=== PATIENT | female | born 1985 | race Caucasian/White ===

== ENCOUNTER 2016-09-09 22:30 | Emergency (ER) | payer OTHER ==
[2016-09-10] MEDS ORDERED: MORPHINE SULFATE 10 MG/ML INJ IV ONE ×2 (02:14→05:05)
[2016-09-10] MEDS ORDERED: ONDANSETRON HCL INJ/PF 4 MG/2 ML SDV IV ONE (02:14)
--- NOTE | 2016-09-10 02:16 | ER Document Report ---
ED GI/ - General Chief Complaint: Pelvic Pain Stated Complaint: PELVIC PAIN Time seen by provider: 02:10 Notes: Patient is a 31-year-old female that comes emergency department with chief complaint of pain in her lower abdomen which is worsening, painful urination, fever since yesterday. Patient is 1.5 weeks status post hysterectomy in [facility] (uterus, fallopian tubes, cervix removed, left ovaries). Past medical history of lupus nephritis, resulting hypertension, and diaphoretic antiphospholipid syndrome, was previously on a blood thinner before surgery. She is also taking Plaquenil. She states because of the pain she had elevation in her blood pressure, she states when she gets this she gets a headache, she states she currently has a headache. TRAVEL OUTSIDE OF THE [place] IN LAST 30 DAYS: No - Related Data Allergies/Adverse Reactions: chlorpromazine HCl [From Thorazine] Allergy (Mild, Verified 09/05/13 13:42) metoclopramide HCl [From Reglan] Allergy (Mild, Verified 09/05/13 13:42) prochlorperazine edisylate [From Compazine] Allergy (Mild, Verified 09/05/13 13: 42) prochlorperazine maleate [From Compazine] Allergy (Mild, Verified 09/05/13 13:42 ) Past Medical History - General Information source: Patient - Social History Smoking Status: Never Smoker Drug Abuse: None Lives with: Spouse/Significant other Family History: None Renal/ Medical History: Reports: Other - Lupus nephritis Past Surgical History: Reports: Hx Hysterectomy, Hx Orthopedic Surgery - left NAFISA - Immunizations Hx Diphtheria, Pertussis, Tetanus Vaccination: No Review of Systems - Review of Systems Constitutional: No symptoms reported EENT: No symptoms reported Cardiovascular: No symptoms reported Respiratory: No symptoms reported Gastrointestinal: See HPI Genitourinary: See HPI Female Genitourinary: See HPI Musculoskeletal: No symptoms reported Skin: No symptoms reported Hematologic/Lymphatic: No symptoms reported Neurological/Psychological: No symptoms reported Physical Exam - Vital signs Vitals: Temp Pulse Resp BP Pulse Ox 98.1 F 83 18 171/115 H 100 09/10/16 00:12 09/10/16 00:12 09/10/16 00:12 09/10/16 00:12 09/10/16 00:12 Interpretation: Normal - General General appearance: Anxious In distress: Mild - Patient lying on her side, appears to be in some pain - HEENT Head: Normocephalic, Atraumatic Eyes: Normal Conjunctiva: Normal Extraocular movements intact: Yes Eyelashes: Normal Pupils: PERRL Nasal: Normal Mouth/Lips: Normal Mucous membranes: Normal Pharynx: Normal Neck: Normal - Respiratory Respiratory status: No respiratory distress Chest status: Nontender Breath sounds: Normal. No: Decreased air movement, Wheezing Chest palpation: Normal - Cardiovascular Rhythm: Regular. No: Tachycardia Heart sounds: Normal auscultation, S1 appreciated, S2 appreciated Murmur: No - Abdominal Inspection: Healed incision - Healed incisions over the abdomen consistent with laparoscopic procedure of the pelvis Distension: No distension Bowel sounds: Normal Tenderness: Tender - There is mild tenderness in the lower abdomen generally. - Genitourinary External exam: Normal Speculum exam: Other - Cervix absent, vaginal cuff present, no bleeding, discharge, or other abnormality noted; CORE SHAPER TOP Dotty present during examination Vaginal bleeding: None - Back Back: Normal, Nontender - Extremities General upper extremity: Normal inspection, Nontender, Normal color, Normal ROM , Normal temperature General lower extremity: Normal inspection, Nontender, Normal color, Normal ROM , Normal temperature, Normal weight bearing. No: Ruddy's sign - Neurological Neuro grossly intact: Yes Cognition: Normal Orientation: AAOx4 Robert Coma Scale Eye Opening: Spontaneous [place] Coma Scale Verbal: Oriented [place] Coma Scale Motor: Obeys Commands Robert Coma Scale Total: 15 Speech: Normal Motor strength normal: LUE, RUE, LLE, RLE Sensory: Normal - Psychological Associated symptoms: Normal affect, Normal mood - Skin Skin Temperature: Warm Skin Moisture: Dry Skin Color: Normal Course - Re-evaluation Re-evalutation: CBC shows anemia, most likely secondary to her hysterectomy. No leukocytosis, fever, tachycardia. Patient is hypertensive. Patient on multiple hypertensive medications. Chemistry unremarkable, urinalysis is completely unremarkable despite patient's reported dysuria. Pelvic examination is unremarkable. No vaginal bleeding noted. Because of patient's reported pain and postop status, CT was performed, because of lupus nephritis IV bolus normal saline was given after contrast, creatinine was noted to be normal beforehand. No acute emergent findings, patient was provided a copy of her disc to follow- up with her surgeon, discussed return precautions. Patient states understanding and agreement. - Vital Signs Vital signs: Temp Pulse Resp BP Pulse Ox 97.5 F 78 16 143/98 H 97 09/10/16 07:11 09/10/16 07:11 09/10/16 07:11 09/10/16 07:11 09/10/16 07:11 - Laboratory Result Diagrams: 09/10/16 03:30 09/10/16 03:30 Laboratory results interpreted by me: 09/10/16 09/10/16 09/10/16 03:30 03:30 04:50 Hgb 9.5 L Hct 29.8 L MCV 71 L MCH 22.6 L MCHC 31.9 L RDW 18.5 H Potassium 3.5 L Urine Protein 30 H Discharge - Discharge Clinical Impression: Postoperative pain Abdominal pain Qualifiers: Abdominal location: lower abdomen, unspecified Qualified Code(s): R10.30 - Lower abdominal pain, unspecified Condition: Stable Disposition: HOME, SELF-CARE Additional Instructions: No acute abnormalities are noted on your labs, urine, exam, or CAT scan imaging. Take the stool softener as directed for the next 2-3 days, take the [place] if needed for pain, follow-up with your surgeon. Return to emergency department for any concerning or worsening symptoms including fever, abdominal swelling, or any other concerning symptoms. Prescriptions: Docusate Sodium [Colace 100 mg Capsule] 100 mg PO DAILY #30 capsule Hydrocodone/Acetaminophen [[place] 5-325 mg Tablet] 1 - 2 tab PO ASDIR #12 tablet
[2016-09-10 03:52] LABS: ABSOLUTE EOSINOPHILS # (AUTO) 0.4 10^3/uL (0.0-0.6); ABSOLUTE LYMPHOCYTES (AUTO) 1.6 10^3/uL (0.5-4.7); ABSOLUTE MONOCYTES (AUTO) 0.3 10^3/uL (0.1-1.4); ABSOLUTE NEUT (AUTO) 5.7 10^3/uL (1.7-8.2); BASOPHILS % (AUTO) 0.6 % (0-2); EOSINOPHILS % (AUTO) 4.8 % (0-6); HEMATOCRIT 29.8 % (36.0-47.0); HEMOGLOBIN 9.5 g/dL (12.0-15.5); HGB HCT DIFFERENCE -1.3; LYMPHOCYTES % (AUTO) 19.6 % (13-45); MEAN CORPUSCULAR HEMOGLOBIN 22.6 pg (27.0-33.4); MEAN CORPUSCULAR HGB CONC 31.9 g/dL (32.0-36.0); MEAN CORPUSCULAR VOLUME 71 fl (80-97); MONOCYTES % (AUTO) 3.7 % (3-13); RED BLOOD COUNT 4.21 10^6/uL (3.72-5.28); RED CELL DISTRIBUTION WIDTH 18.5 % (11.5-14.0); SEGMENTED NEUTROPHILS % (AUTO) 71.3 % (42-78); WHITE BLOOD COUNT 7.9 10^3/uL (4.0-10.5)
[2016-09-10 04:33] LABS: ALANINE AMINOTRANSFERASE 30 U/L (9-52); ALBUMIN 3.8 g/dL (3.5-5.0); ALKALINE PHOSPHATASE 101 U/L (38-126); ANION GAP 14 (5-19); ASPARTATE AMINO TRANSFERASE 20 U/L (14-36); BILIRUBIN,TOTAL 0.3 mg/dL (0.2-1.3); BLOOD UREA NITROGEN 8 mg/dL (7-20); CALCIUM 9.3 mg/dL (8.4-10.2); CARBON DIOXIDE 25 mmol/L (22-30); CHLORIDE 104 mmol/L (98-107); CREATININE RESULT 0.86 mg/dL (0.52-1.25); GLUCOSE 94 mg/dL (75-110); POTASSIUM 3.5 mmol/L (3.6-5.0); SODIUM 143.1 mmol/L (137-145); TOTAL PROTEIN 6.4 g/dL (6.3-8.2)
[2016-09-10] MEDS ORDERED: DIPHENHYDRAMINE HCL 50 MG/ML VIAL IV ONE (05:05)
[2016-09-10 05:12] LABS: APPEARANCE,URINE CLEAR; BILIRUBIN,URINE NEGATIVE (NEGATIVE); GLUCOSE, URINE NEGATIVE (NEGATIVE); KETONES,URINE NEGATIVE (NEGATIVE); LEUKOCYTE ESTERASE,URINE NEGATIVE (NEGATIVE); NITRITE,URINE NEGATIVE (NEGATIVE); PROTEIN,URINE 30 mg/dL (NEGATIVE); URINE SPECIFIC GRAVITY 1.006; UROBILINOGEN,URINE NEGATIVE mg/dL (<2.0)
[2016-09-10] MEDS ORDERED: NORMAL SALINE 1000 ML 1,000 ML IV ONE (05:27)
[2016-09-10 07:13] VITALS: BP 143/98
== END 2016-09-10 07:11 | disposition home or self-care (01) ==
LOC: ER 22:30
DX: G89.18 Other acute postprocedural pain (principal); R10.30 Lower abdominal pain, unspecified; R10.2 Pelvic and perineal pain; Z90.710 Acquired absence of both cervix and uterus
CPT/HCPCS: 96376; 99284; 96361; 51701; 96374; 96375; 36415; 85025; 80053; 81001; 74177; J1200; J2270; J2405; J7030

== ENCOUNTER 2020-03-13 14:50 | Emergency (ER) | payer OTHER ==
[2020-03-13 15:43] VITALS: BP 158/110
--- NOTE | 2020-03-13 15:56 | ER Document Report ---
ED General - General Chief Complaint: High Blood Pressure Stated Complaint: BP ISSUES/SHORTNES OF BREATH Time Seen by Provider: 03/13/20 15:20 Primary Care Provider: Radha NORIEGA MD [ACTIVE STAFF] - Follow up as needed Mode of Arrival: Ambulatory Information source: Patient Notes: Patient [place] and missed her dialysis session. Pat lori states that she typically dialyzes Friday and missed Friday as well as today due to her car breaking down. Patient states she expects to get her vehicle out of the shop tomorrow. Patient states that she has had mild lower extremity swelling that is worse after standing and mild shortness of breath. Patient states that her blood pressure has been increasing but she has been taking additional blood pressure medications under the direction of her doctor to treat that. Patient states that she dialyzes at [facility] and was attempting to get dialyzed locally although they require a negative COVID test in the state as compared to hers. TRAVEL OUTSIDE OF THE [place] IN LAST 30 DAYS: No - HPI Onset: Yesterday Onset/Duration: Gradual Quality of pain: No pain Pain Level: Denies Associated symptoms: Shortness of breath. denies: Chest pain, Nonproductive cough, Productive cough Exacerbated by: Denies Relieved by: Denies Similar symptoms previously: No Recently seen / treated by doctor: No - Related Data Allergies/Adverse Reactions: chlorpromazine HCl [From Thorazine] Allergy (Mild, Verified 09/05/13 13:42) metoclopramide HCl [From Reglan] Allergy (Mild, Verified 09/05/13 13:42) prochlorperazine edisylate [From Compazine] Allergy (Mild, Verified 09/05/13 13:42) prochlorperazine maleate [From Compazine] Allergy (Mild, Verified 09/05/13 13:42) Past Medical History - General Information source: Patient - Social History Smoking Status: Never Smoker Frequency of alcohol use: None Drug Abuse: None Lives with: Family Family History: None - Medical History Medical History: Other - Antiphospholipid Notes: AHUD - Past Medical History Cardiac Medical History: Reports: Hx DVT Renal/ Medical History: Reports: Hx End Stage Renal Disease, Hx Hemodialysis Past Surgical History: Reports: Hx Section, Hx Cholecystectomy, Hx Hysterectomy, Hx Orthopedic Surgery - left NAFISA, Hx Tubal Ligation - Immunizations Hx Diphtheria, Pertussis, Tetanus Vaccination: No Review of Systems - Review of Systems Constitutional: No symptoms reported. denies: Fever EENT: No symptoms reported Cardiovascular: Edema. denies: Chest pain Respiratory: Short of breath. denies: Cough Gastrointestinal: No symptoms reported Genitourinary: No symptoms reported Female Genitourinary: No symptoms reported Musculoskeletal: Leg swelling Skin: No symptoms reported Hematologic/Lymphatic: No symptoms reported Neurological/Psychological: No symptoms reported Physical Exam - Vital signs Vitals: Temp Pulse Resp BP Pulse Ox 98.7 F 60 18 158/110 H 100 03/13/20 15:27 03/13/20 15:27 03/13/20 15:27 03/13/20 15:27 03/13/20 15:27 - General General appearance: Appears well, Alert In distress: None - HEENT Head: Normocephalic Eyes: Normal Conjunctiva: Normal Nasal: Normal Mouth/Lips: Normal Mucous membranes: Normal Neck: Normal, Supple. No: Lymphadenopathy - Respiratory Respiratory status: No respiratory distress Chest status: Nontender Breath sounds: Normal. No: Rales, Rhonchi, Stridor, Wheezing Chest palpation: Normal - Cardiovascular Rhythm: Regular Heart sounds: S1 appreciated, S2 appreciated - Abdominal Inspection: Normal Tenderness: Nontender - Back Back: Tender - Lumbar paraspinal tenderness - Extremities General upper extremity: Normal inspection, Normal strength General lower extremity: Normal inspection, Normal strength. No: Edema - Neurological Neuro grossly intact: Yes Cognition: Normal Robert Coma Scale Eye Opening: Spontaneous Robert Coma Scale Verbal: Oriented Robert Coma Scale Motor: Obeys Commands Robert Coma Scale Total: 15 - Psychological Associated symptoms: Normal affect, Normal mood - Skin Skin Temperature: Warm Skin Moisture: Dry Skin Color: Normal Course - Re-evaluation Re-evalutation: 03/13/20 16:54 Patient's chemistry resulted, potassium is 4 at this time with a BUN of 59 and creatinine of 8.25. Patient does still make urine. Patient reports that she does have a dialysis appointment scheduled for Friday which is in [address] Jeffery regarding patient presentation and plan of care at this time. Agrees with discharge plan of care. Advises keeping patient on a low potassium diet. Patient without any objective dyspnea or edema. Patient ot herwise nontoxic in appearance and stable for discharge. - Vital Signs Vital signs: Temp Pulse Resp BP Pulse Ox 98.7 F 60 18 158/110 H 100 03/13/20 15:27 03/13/20 15:27 03/13/20 15:27 03/13/20 15:27 03/13/20 15:27 - Laboratory Result Diagrams: 03/13/20 16:14 03/13/20 16:14 Laboratory results interpreted by me: 03/13/20 03/13/20 16:14 16:14 RDW 14.3 H Plt Count 100 L Sodium 136.1 L BUN 59 H Creatinine 8.25 H Est GFR ( Amer) 7 L Est GFR (MDRD) Non-Af 6 L Labs- All tests 24 hr 03/13/20 03/13/20 16:14 16:14 WBC 4.3 RBC 4.17 Hgb 12.3 Hct 36.5 MCV 88 MCH 29.6 MCHC 33.7 RDW 14.3 H Plt Count 100 L Lymph % (Auto) 23.7 [place] % (Auto) 5.0 Eos % (Auto) 5.4 Baso % (Auto) 1.5 Absolute Neuts (auto) 2.8 Absolute Lymphs (auto) 1.0 Absolute Monos (auto) 0.2 Absolute Eos (auto) 0.2 Absolute Basos (auto) 0.1 Seg Neutrophils % 64.4 Sodium 136.1 L Potassium 4.0 Chloride 100 Carbon Dioxide 26 Anion Gap 10 BUN 59 H Creatinine 8.25 H Est GFR ( Amer) 7 L Est GFR (MDRD) Non-Af 6 L Glucose 82 Calcium 8.5 Magnesium 2.3 Total Bilirubin 0.6 Direct Bilirubin 0.2 Neonat Total Bilirubin Not Reportable Neonat Direct Bilirubin Not Reportable Neonat Indirect Bili Not Reportable AST 33 ALT 33 Alkaline Phosphatase 79 Total Protein 7.1 Albumin 4.4 - Diagnostic Test Radiology reviewed: Image reviewed, Reports reviewed - EKG Interpretation by Ri EKG shows normal: Sinus rhythm When compared to previous EKG there are: Previous EKG unavailable Additional EKG results interpreted by me: 03/13/20 17:09 Sinus rhythm rate of 59 with borderline prolongation of QT interval at 484, no acute ischemic changes, no peaked T waves Discharge - Discharge Clinical Impression: Missed dialysis Dyspnea Qualifiers: Dyspnea type: unspecified Qualified Code(s): R06.00 - Dyspnea, unspecified Condition: Stable Disposition: HOME, SELF-CARE Additional Instructions: Return immediately for any new or worsening symptoms Follow-up with your dialysis center on Friday as planned Eat a low potassium diet Referrals: Radha NORIEGA MD [ACTIVE STAFF] - Follow up as needed
[2020-03-13 16:25] LABS: ABSOLUTE BASOPHILS # (AUTO) 0.1 10^3/uL (0.0-0.2); ABSOLUTE EOSINOPHILS # (AUTO) 0.2 10^3/uL (0.0-0.6); ABSOLUTE MONOCYTES (AUTO) 0.2 10^3/uL (0.1-1.4); ABSOLUTE NEUT (AUTO) 2.8 10^3/uL (1.7-8.2); BASOPHILS % (AUTO) 1.5 % (0-2); EOSINOPHILS % (AUTO) 5.4 % (0-6); HEMATOCRIT 36.5 % (36.0-47.0); HEMOGLOBIN 12.3 g/dL (12.0-15.5); LYMPHOCYTES % (AUTO) 23.7 % (13-45); MEAN CORPUSCULAR HEMOGLOBIN 29.6 pg (27.0-33.4); MEAN CORPUSCULAR HGB CONC 33.7 g/dL (32.0-36.0); MEAN CORPUSCULAR VOLUME 88 fl (80-97); PLATELET COUNT 100 10^3/uL (150-450); RED BLOOD COUNT 4.17 10^6/uL (3.72-5.28); RED CELL DISTRIBUTION WIDTH 14.3 % (11.5-14.0); SEGMENTED NEUTROPHILS % (AUTO) 64.4 % (42-78); TOTAL CELLS COUNTED % (AUTO) 100 %; WHITE BLOOD COUNT 4.3 10^3/uL (4.0-10.5)
--- NOTE | 2020-03-13 16:38 | RADIOLOGY REPORT (SQ) ---
EXAM DESCRIPTION: CHEST SINGLE VIEW IMAGES COMPLETED DATE/TIME: 03/13/2020 4:19 pm REASON FOR STUDY: sob COMPARISON: None. EXAM PARAMETERS: NUMBER OF VIEWS: One view. TECHNIQUE: Single frontal radiographic view of the chest acquired. RADIATION DOSE: NA LIMITATIONS: None. FINDINGS: LUNGS AND PLEURA: No opacities, masses or pneumothorax. No pleural effusion. MEDIASTINUM AND HILAR STRUCTURES: No masses. Contour normal. HEART AND VASCULAR STRUCTURES: Heart normal in size. Normal vasculature. BONES: No acute findings. HARDWARE: Tunneled right IJ based dialysis line with catheter tip at cavoatrial junction. OTHER: No other significant finding. IMPRESSION: NO ACUTE RADIOGRAPHIC FINDING IN THE CHEST. TECHNICAL DOCUMENTATION: JOB ID: [id number] [employer]- All Rights Reserved Reading location - IP/workstation name: [email or web address]
[2020-03-13 16:41] LABS: ALBUMIN 4.4 g/dL (3.5-5.0); ALKALINE PHOSPHATASE 79 U/L (38-126); ANION GAP 10 (5-19); ASPARTATE AMINO TRANSFERASE 33 U/L (14-36); BILIRUBIN,DIRECT 0.2 mg/dL (0.0-0.4); BILIRUBIN,TOTAL 0.6 mg/dL (0.2-1.3); BLOOD UREA NITROGEN 59 mg/dL (7-20); CALCIUM 8.5 mg/dL (8.4-10.2); CARBON DIOXIDE 26 mmol/L (22-30); CHLORIDE 100 mmol/L (98-107); GLUCOSE 82 mg/dL (75-110); TOTAL PROTEIN 7.1 g/dL (6.3-8.2)
--- NOTE | 2020-03-14 07:19 | EKG REPORT ---
SEVERITY:- ABNORMAL ECG - SINUS RHYTHM PROBABLE LEFT VENTRICULAR HYPERTROPHY ST ELEV, PROBABLE NORMAL EARLY REPOL PATTERN BORDERLINE PROLONGED QT INTERVAL : Confirmed by: Rashaad Dalton MD 14-Mar-2020 07:18:27
== END 2020-03-13 17:25 | disposition home or self-care (01) ==
LOC: ER 14:50
DX: N18.6 End stage renal disease (principal); M79.89 Other specified soft tissue disorders; R06.02 Shortness of breath; Z99.2 Dependence on renal dialysis; Z90.49 Acquired absence of other specified parts of digestive tract; Z86.718 Personal history of other venous thrombosis and embolism
CPT/HCPCS: 36415; 71045; 80053; 83735; 85025; 93005; 93010; 99284